=== PATIENT | female | born 1985 | race African-American/Black ===

== ENCOUNTER 2023-02-05 19:44 | Inpatient (IN) | payer MEDICAID, OTHER ==
[~2023-02-05] VITALS: Ht 157.5 cm; Wt 61.2 kg
[2023-02-05] MEDS ORDERED: ONDANSETRON HCL INJ 2MG/ML 2ML 2 MG/ML VIAL IV STA (19:49)
[2023-02-05] MEDS ORDERED: SODIUM CHLORIDE 0.9% 1000ML 1,000 ML ONE (19:57)
[2023-02-05] MEDS ORDERED: SODIUM CHLORIDE 0.9% 1000ML 1,000 ML IV ONE ×2 (20:00)
[2023-02-05 21:12] LABS: ALBUMIN 4.7 g/dL (3.5-5.0); ALBUMIN/GLOBULIN RATIO 1.1 (0.8-2.0); ANION GAP 20.8 mmol/L (8-16); CALCIUM 10.2 mg/dL (8.4-10.2); CREATININE, SERUM 2.27 mg/dL (0.57-1.11); LIPASE 45 U/L (8-78)
[2023-02-05 21:14] LABS: POTASSIUM 2.8 mmol/L (3.5-5.1)
[2023-02-05] MEDS ORDERED: POTASSIUM CHLORIDE 20 MEQ TAB CR PO STA (21:19)
[2023-02-05] MEDS ORDERED: KCL 20MEQ/.9 SOD CHL 1,000 ML IV ONE (21:30)
[2023-02-05] MEDS ORDERED: DEXTROSE 50% SYRINGE 50 ML IV PRN (21:45)
[2023-02-05 21:58] LABS: BASOPHILS % 0.1 % (0.0-1.0); EOSINOPHILS # (AUTO) 0.1 (0.0-0.4); EOSINOPHILS % 0.9 % (0.0-6.0); HEMATOCRIT 39.7 % (34.2-44.1); HEMOGLOBIN 14.2 g/dL (12.0-16.0); LYMPHOCYTES # (AUTO) 1.6 (1.0-3.2); MEAN CORPUSCULAR HEMOGLOBIN 31.2 pg (28-32); MEAN CORPUSCULAR HGB CONC 35.8 g/dL (31-35); MEAN CORPUSCULAR VOLUME 87.3 fL (81-99); MONOCYTES # (AUTO) 0.9 (0.2-0.8); MONOCYTES % 12.2 % (4.4-11.3); NEUTROPHILS # (AUTO) 4.8 (2.1-6.9); NEUTROPHILS % 64.5 % (38.7-80.0); PLATELET COUNT 286 x10e3/uL (140-360); RED BLOOD COUNT 4.55 x10e6/uL (3.6-5.1); RED CELL DISTRIBUTION WIDTH 12.9 % (11.7-14.4); WHITE BLOOD COUNT 7.38 x10e3/uL (4.8-10.8)
[2023-02-05 22:24] LABS: AMPHETAMINES SCREEN,URINE NEGATIVE (NEGATIVE); BENZODIAZEPINES SCREEN,URINE NEGATIVE (NEGATIVE); CLARITY,URINE CLOUDY (CLEAR); COLOR,URINE YELLOW (YELLOW); PHENCYCLIDINE SCREEN,URINE NEGATIVE (NEGATIVE)
[2023-02-05 22:25] LABS: KETONES,URINE TRACE (NEGATIVE); LEUKOCYTE ESTERASE ,URINE NEGATIVE (NEGATIVE); NITRITE,URINE NEGATIVE (NEGATIVE); PROTEIN,URINE DIPSTICK TRACE (NEGATIVE); URINE UROBILINOGEN 0.2 mg/dL (0.2 - 1)
[2023-02-05 22:28] LABS: BACTERIA,URINE FEW /HPF; EPITHELIAL CELLS,URINE MODERATE /LPF; MUCUS,URINE FEW (RARE); TRANSITIONAL EPI CELLS,URINE FEW
[2023-02-05 23:00] VITALS: BP 149/100; PULSE 99; RESP 18; TEMP 97.7; O2SAT 99
[2023-02-05 23:40] VITALS: BP 133/102; PULSE 99; RESP 18; TEMP 97.7; O2SAT 100
[2023-02-05 23:48] VITALS: BP 149/105; PULSE 99; RESP 18; TEMP 97.7; O2SAT 99
[2023-02-06 05:47] LABS: BASOPHILS % 0.1 % (0.0-1.0); EOSINOPHILS # (AUTO) 0.1 (0.0-0.4); EOSINOPHILS % 0.8 % (0.0-6.0); HEMATOCRIT 39.7 % (34.2-44.1); HEMOGLOBIN 14.1 g/dL (12.0-16.0); LYMPHOCYTES # (AUTO) 1.5 (1.0-3.2); LYMPHOCYTES % 18.5 % (18.0-39.1); MEAN CORPUSCULAR HEMOGLOBIN 30.9 pg (28-32); MEAN CORPUSCULAR HGB CONC 35.5 g/dL (31-35); MEAN CORPUSCULAR VOLUME 87.1 fL (81-99); MONOCYTES # (AUTO) 1.1 (0.2-0.8); MONOCYTES % 14.1 % (4.4-11.3); NEUTROPHILS # (AUTO) 5.2 (2.1-6.9); NEUTROPHILS % 66.1 % (38.7-80.0); PLATELET COUNT 270 x10e3/uL (140-360); RED BLOOD COUNT 4.56 x10e6/uL (3.6-5.1); RED CELL DISTRIBUTION WIDTH 12.8 % (11.7-14.4); WHITE BLOOD COUNT 7.85 x10e3/uL (4.8-10.8)
[2023-02-06 06:22] LABS: ALBUMIN 4.1 g/dL (3.5-5.0); ALBUMIN/GLOBULIN RATIO 1.1 (0.8-2.0); ANION GAP 15.9 mmol/L (8-16); CALCIUM 9.2 mg/dL (8.4-10.2); CREATININE, SERUM 1.83 mg/dL (0.57-1.11)
[2023-02-06 06:25] LABS: POTASSIUM 2.9 mmol/L (3.5-5.1)
[2023-02-06] MEDS: ONDANSETRON HCL INJ 2MG/ML 2ML 2 MG/ML VIAL IV PRN (07:25)
[2023-02-06] MEDS ORDERED: INSULIN REGULAR, HUMAN 100 UNIT/1 ML SQ SCH (07:30)
[2023-02-06 09:08] VITALS: BP 116/83; PULSE 92; RESP 17; TEMP 98.1; O2SAT 100
[2023-02-06 09:09] VITALS: BP 116/83; PULSE 92; RESP 17; TEMP 98.1; O2SAT 100
[2023-02-06] MEDS ORDERED: ACETAMINOPHEN 325 MG TAB PO PRN (10:45)
[2023-02-06] MEDS ORDERED: POTASSIUM CHLORIDE 20 MEQ TAB CR PO ONE (11:30)
[2023-02-06] MEDS: CEFTRIAXONE 2 GM in SODIUM CHLORIDE 0.9% 100 ML IV SCH (11:32)
[2023-02-06] MEDS: ACETAMINOPHEN/CODEINE 300MG - 30MG TAB PO PRN ×2 (11:34→18:13)
[2023-02-06 12:00] VITALS: BP 136/84; PULSE 86; RESP 17; TEMP 97.7; O2SAT 100
[2023-02-06 16:00] VITALS: BP 120/80; PULSE 82; RESP 16; TEMP 97.8; O2SAT 100
[2023-02-06 20:00] VITALS: BP 133/90; PULSE 86; RESP 16; TEMP 98.1; O2SAT 99
[2023-02-06 21:00] VITALS: BP 133/90; PULSE 86; RESP 16; TEMP 98.1; O2SAT 99
[2023-02-06] MEDS ORDERED: POTASSIUM CHLORIDE 20 MEQ TAB CR PO STA (21:29)
[2023-02-06] MEDS: SODIUM CHLORIDE 0.9% 1000ML 1,000 ML IV SCH (22:26)
[2023-02-07 05:04] LABS: BASOPHILS % 0.4 % (0.0-1.0); EOSINOPHILS # (AUTO) 0.1 (0.0-0.4); EOSINOPHILS % 1.8 % (0.0-6.0); HEMATOCRIT 37.2 % (34.2-44.1); LYMPHOCYTES % 40.2 % (18.0-39.1); MEAN CORPUSCULAR HEMOGLOBIN 30.8 pg (28-32); MEAN CORPUSCULAR HGB CONC 34.9 g/dL (31-35); MEAN CORPUSCULAR VOLUME 88.2 fL (81-99); MONOCYTES # (AUTO) 0.7 (0.2-0.8); MONOCYTES % 13.9 % (4.4-11.3); NEUTROPHILS # (AUTO) 2.2 (2.1-6.9); NEUTROPHILS % 43.3 % (38.7-80.0); PLATELET COUNT 239 x10e3/uL (140-360); RED BLOOD COUNT 4.22 x10e6/uL (3.6-5.1); RED CELL DISTRIBUTION WIDTH 12.8 % (11.7-14.4); WHITE BLOOD COUNT 5.05 x10e3/uL (4.8-10.8)
[2023-02-07 05:31] LABS: ALBUMIN 3.7 g/dL (3.5-5.0); ANION GAP 12.3 mmol/L (8-16); BILIRUBIN,DIRECT 0.3 mg/dL (0.0-0.5); CALCIUM 9.2 mg/dL (8.4-10.2); CREATININE, SERUM 1.33 mg/dL (0.57-1.11); MAGNESIUM 2.7 MG/DL (1.3-2.1); POTASSIUM 3.3 mmol/L (3.5-5.1)
[2023-02-07] MEDS: ACETAMINOPHEN/CODEINE 300MG - 30MG TAB PO PRN (05:46)
[2023-02-07 05:54] LABS: THYROID STIMULATING HORMONE 2.11 uIU/mL (0.350-4.940)
[2023-02-07 07:30] LABS: HIV 1&2 AB SCREEN NON-REACTIVE (NONREACTIVE)
[2023-02-07] MEDS: CEFTRIAXONE 2 GM in SODIUM CHLORIDE 0.9% 100 ML IV SCH (08:16)
[2023-02-07] MEDS: SODIUM CHLORIDE 0.9% 1000ML 1,000 ML IV SCH ×2 (08:20→16:52)
[2023-02-07 09:12] VITALS: BP 118/80; PULSE 76; RESP 16; TEMP 98.2; O2SAT 100
[2023-02-07 09:15] VITALS: BP 118/80; PULSE 86; RESP 16; TEMP 98.2; O2SAT 100
[2023-02-07 12:26] VITALS: BP 119/82; PULSE 68; RESP 16; TEMP 98; O2SAT 100
[2023-02-07] MEDS ORDERED: POTASSIUM CHLORIDE 10MEQ EA PO ONE (12:45)
[2023-02-07 16:56] VITALS: BP 120/79; PULSE 91; RESP 18; TEMP 98.4; O2SAT 100
[2023-02-07 20:00] VITALS: BP 130/91; PULSE 88; RESP 18; TEMP 99.1; O2SAT 100
[2023-02-08] VITALS (7 sets, daily range): BP systolic 107–125; BP diastolic 70–102; PULSE 79–99; RESP 18–20; TEMP 97.7–98.7; O2SAT 98–100
[2023-02-08] MEDS: SODIUM CHLORIDE 0.9% 1000ML 1,000 ML IV SCH ×2 (03:45→13:45)
[2023-02-08 06:37] LABS: ANION GAP 11.4 mmol/L (8-16); CALCIUM 8.6 mg/dL (8.4-10.2); CREATININE, SERUM 1.22 mg/dL (0.57-1.11); POTASSIUM 3.4 mmol/L (3.5-5.1)
[2023-02-08] MEDS: ONDANSETRON HCL INJ 2MG/ML 2ML 2 MG/ML VIAL IV PRN (08:56)
[2023-02-08] MEDS: ACETAMINOPHEN/CODEINE 300MG - 30MG TAB PO PRN (08:57)
[2023-02-08] MEDS: CEFTRIAXONE 2 GM in SODIUM CHLORIDE 0.9% 100 ML IV SCH ×2 (09:01→16:39)
[2023-02-08] MEDS ORDERED: CLONIDINE HCL 0.1 MG TAB PO PRN (12:30)
[2023-02-08] MEDS ORDERED: POTASSIUM CHLORIDE 10MEQ EA PO ONE (16:45)
[2023-02-09 05:17] LABS: CALCIUM 8.4 mg/dL (8.4-10.2); CREATININE, SERUM 1.1 mg/dL (0.57-1.11)
[2023-02-09 05:34] VITALS: BP 112/98; PULSE 79; RESP 18; TEMP 97.3; O2SAT 100
[2023-02-09 08:43] VITALS: BP 120/91; PULSE 72; RESP 19; TEMP 97.5; O2SAT 100
[2023-02-09] MEDS ORDERED: LOSARTAN POTASSIUM 25 MG TAB PO SCH (09:00)
[2023-02-09 10:13] VITALS: BP 120/91
[2023-02-09] MEDS: CEFTRIAXONE 2 GM in SODIUM CHLORIDE 0.9% 100 ML IV SCH (10:14)
== END 2023-02-09 11:46 | disposition home or self-care (01) | DRG 683 ==
LOC: ER 19:48 → ERHOLD 21:38 → MED/SURG 23:10
PROVIDERS: ADMIT Internal Medicine; ATTEND Internal Medicine
DX: N17.9 Acute kidney failure, unspecified (principal); E87.1 Hypo-osmolality and hyponatremia; R11.2 Nausea with vomiting, unspecified; F12.188 Cannabis abuse with other cannabis-induced disorder; E87.6 Hypokalemia; I10 Essential (primary) hypertension; E11.610 Type 2 diabetes mellitus with diabetic neuropathic arthropathy; J45.909 Unspecified asthma, uncomplicated; F17.210 Nicotine dependence, cigarettes, uncomplicated
CPT/HCPCS: 0223U; 36415; 76830; 76856; 80048; 80053; 80076; 80307; 81001; 82948; 83690; 83735; 84443; 84702; 85025; 87040; 87390; 99284; G0433; G0435; J0696; J2405; J7030; J7050